=== PATIENT | male | born 1960 | race Caucasian/White ===

== ENCOUNTER 2016-09-07 09:54 | Emergency (ER) | payer OTHER ==
[~2016-09-07] VITALS: Ht 180.3 cm; Wt 86.4 kg
[2016-09-07] VITALS (8 sets, daily range): BP systolic 128–197; BP diastolic 86–117; PULSE 62–86; RESP 14–17; O2SAT 96–98
[~2016-09-07 09:54] MED LIST: AMLO5TAB2 PO; GLUC1CAP13 PO; MULT-1018 PO
--- NOTE | 2016-09-07 10:32 | DRSVH ---
PROCEDURE: X-RAY CHEST ONE VIEW, PORTABLE ([id number]) INDICATIONS: CHEST PAIN TECHNIQUE: One view of the chest was acquired. COMPARISON: None. FINDINGS: Surgical changes and devices: None. Lungs and pleura: No pleural effusions or pneumothorax. Lungs are clear. Mediastinum: Mediastinal contours appear normal. Heart size is normal. Bones and chest wall: No suspicious bony lesions. Overlying soft tissues appear unremarkable. IMPRESSION: Mildly reduced inspiratory volume, source of chest pain is not seen. Dictated by: Rudy Lara M.D. on 09/07/2016 at 10:31 Approved by: Rudy Lara M.D. on 09/07/2016 at 10:31
--- NOTE | 2016-09-07 10:34 | ED.REPORT ---
HPI-Chest Pain 40 and Over Date of Service Sep 07, 2016 ED Provider: Deandre Pal MD Started last night, causing him to wake up a couple of times. Pain located Rt back, then radiated through chest to R chest. 5/10, Feels like it's getting worse since last night, denies radiation into the neck or arm. Associated with nausea, SOB, lightheadedness. No trauma. Never had this before. Takes amlodipine for HTN, last taken 5 days ago, as he did not have the pills with him. No first degree relatives with [place]. Took naproxen this AM, did not help pain. Went to work, pain worsened and "felt it wasn't right." Did NOT take Aspirin. Denies any other medical problems or medications. No recent long distance travel, no long periods of immobilization. Denies pain or swelling in either leg. Nursing Notes Stated Complaint: CHEST PAIN Nursing Notes Reviewed: Yes Allergies: Coded Allergies: No Known Allergies (Unverified , 09/07/16) Scheduled Amlodipine (Amlodipine) 5 Mg Tablet 5 MG PO DAILY Gluc HCl/Csa/Temitope Hy/Hyalur AC (Glucosamine Chondroitin Cap) 1 Each Capsule 1 EACH PO DAILY Multivitamin (Multi Vitamin Daily) 1 Each Tablet 1 EACH PO DAILY Scheduled PRN Hydrocodone-Acetaminophen 5-300 mg (Hydrocodone-Acetaminophen 5-300 mg) 1 Each Tablet 1 TABLET PO Q4H PRN PRN For Pain General Time Seen by MD: 10:09 Chief Complaint Chest pain, Back pain Sudden in Onset?: Yes Onset Occurred: 13 - 16 hours ago Location: : Back: Chest right Past Medical History Past Medical History HTN L rotator cuff injury requiring Reconstruction Past Surgical History L rotator cuff repair 05/24/16. Mass removal (benign) from left thorax 8-9yrs ago. Family History MOther and father alive and well. Possible have HTN. MGM [place] in her early 60s. Smoking History Former Smoker (Quit 1991) Social History Lives with . Alcohol Use: 1-3 per day (wine and/or bourben and water) Drug Use: THC ("A long time ago") Occupation Plant operations and [employer] Ambulatory Status Independent Review of Systems Complete sys rev & neg: except as marked. Physical Exam General: Laying in bed, no apparent distress. HEENT: Normocephalic, atraumatic, EOMI grossly, Cardiovascular: Regular rate and rhythm, no clicks murmurs rubs, peripheral pulses 2/4 equal bilaterally Thorax: There is no tenderness over rib cage bilaterally, no ecchymosis, no reproduction or worsening with use of upper extremities. Pulmonary: Clear to auscultation bilaterally, no W/R/R. Abdominal: Soft to palpation, bowel sounds present 4, no hepatosplenomegaly. Negative rebound. Extremities: No edema appreciated. No tenderness, asymmetry. Neuro: Neurologically grossly intact, strength is equal bilaterally upper and lower extremities. MSK: Gait is normal, able to move extremities on their own volition, strength 5 out of 5 equal bilaterally to upper and lower extremities. Initial Vital Signs Vital Signs (First) Date Time Temp Pulse Resp B/P Pulse Ox O2 Delivery O2 Flow Rate FiO2 09/07/16 09:59 82 14 197/116 98 Room Air 09/07/16 13:50 36.9 Interpretation & Diagnostics Lab Results Interpretation Result Diagram: 09/07/16 1020 09/07/16 1020 Test 09/07/16 10:20 09/07/16 12:20 White Blood Count 10.7th/mm3 (3.8-10.1) Red Blood Count 5.36mil/mm3 (4.40-5.80) Hemoglobin 15.7g/dL (13.8-17.2) Hematocrit 45.2% (41.0-50.0) Mean Corpuscular Volume 84.3fL (81-100) Mean Corpuscular Hemoglobin 29.3pg (27.0-35.0) Mean Corpuscular Hemoglobin Concent 34.7% (32.0-37.0) Red Cell Distribution Width 12.6% (12.3-15.4) Platelet Count 302bil/L (150-400) Neutrophils (%) (Auto) 74.5% (40-74) Lymphocytes (%) (Auto) 16.0% (14-46) Monocytes (%) (Auto) 7.6% (4-12) Eosinophils (%) (Auto) 1.5% (0-5) Basophils (%) (Auto) 0.2% (0-3) D-Dimer < 0.50mg/L FEU (<0.50) Sodium Level 137mEq/L (134-144) Potassium Level 4.0mEq/L (3.5-5.2) Chloride Level 101mEq/L (97-108) Carbon Dioxide Level 22mmol/L (18-29) Blood Urea Nitrogen 11mg/dL (6-24) Creatinine 0.75mg/dL (0.76-1.27) Estimat Glomerular Filtration Rate 114mL/min (>59) Glucose Level 113mg/dL (60-99) Calcium Level 9.4mg/dL (8.5-10.1) Magnesium Level 2.0mg/dL (1.6-2.6) Total Bilirubin 0.4mg/dL (0.0-1.2) Aspartate Amino Transf (AST/SGOT) 22U/L (0-50) Alanine Aminotransferase (ALT/SGPT) 33U/L (0-44) Alkaline Phosphatase 67U/L (25-150) Total Protein 6.9g/dL (6.4-8.4) Albumin 4.2g/dL (3.4-5.0) Troponin T < 0.010ug/L (0.0-0.011) ECG Interpretation ECG Interpretation: Normal sinus rhythm, rate 64, left axis deviation. "Sinus rhythm, left ventricular hypertrophy, old inferior infarct" QTC 415 ECG Interpretation: No significant change from previous, no signs of infarct or ischemia. Rate 57, GA 148 QTC 402 X-Ray Chest Interpretation Chest Xray Interpretation: "Mildly reduced inspiratory volume, source of chest pain is not seen." Images reviewed personally, no rib fractures, no pneumo or hemothorax. View: Portable Interpretation / Wet Read by: Interpret - Radiologist Re-Eval/Medical Decision Med Decision/Clinical Course Patient workup was negative for signs of myocardial infarction, pneumothorax, rib fracture, and negative d-dimer and low risk for DVT/pulmonary embolism. Patient's pain had mild response to sublingual nitroglycerin, nitroglycerin paste was applied, he was given 10 mg dose of amlodipine by mouth, as well as chewable aspirin. His blood pressure responded only mildly and transiently to nitroglycerin. Following administration of amlodipine systolic blood pressure remained elevated but better controlled. Negative workup was discussed with the patient, source of pain is not identified on imaging or chemistries, red flag symptoms were discussed with the patient in need to return to ER, patient stated understanding and agreement. Patient did mention he was favoring his right upper extremity since having surgery on his left shoulder, additionally he conveys that since coming in the hospital doing self massage has helped relieve some of the pain. Photos were negative 2, and EKGs were reassuring 2 Counseled Regarding: Diagnosis, Lab results, Need for follow-up, When/why to return to ED Discharge & Departure Primary Impression: Hypertension, uncontrolled Additional Impression: Chest pain, non-cardiac Disposition: Home Discharge Condition All VS Reviewed: Yes Patient Instructions: Chest Pain (ED), Chronic Hypertension (ED) Additional Instructions: Please follow-up with your primary care physician regarding your emergency room visit. Please continue taking your amlodipine at home, do not skip doses. If you have any lightheadedness, dizziness, worsening chest pain, feeling your heart beating fast or hard for no reason, abrupt shortness of breath, please do not hesitate to return to the emergency department or call 911 if necessary. We have given you small amount of pain medication, this will only cover up the pain will not treat the cause. Please only take 1 pill at a time with at least 6 hours in between. Please do not operate any vehicles, drive or be responsible for anyone else after taking this medication. Do not take with alcohol Referrals: Mina Lopez MD (PCP) Attending Statement I personally saw and examined this patient with Dr Plaza on 09/07. Agree with above. copies to: Mina Lopez MD, Noah M DO Sep 07, 2016 10:33 Deandre Pal MD Sep 07, 2016 19:16
[2016-09-07 10:38] LABS: BASOPHILS % (AUTO) 0.2 % (0-3); EOSINOPHILS % (AUTO) 1.5 % (0-5); MONOCYTES % (AUTO) 7.6 % (4-12); Mean Corpuscular Hemoglobin 29.3 pg (27.0-35.0); Mean Corpuscular Volume 84.3 fL (81-100); NEUTROPHILS % (AUTO) 74.5 % (40-74); Platelet Count 302 bil/L (150-400)
[2016-09-07 11:23] LABS: TROPONIN T < 0.010 ug/L (0.0-0.011)
[2016-09-07] MEDS: Nitroglycerin 2% 1 Gm Ointment TOPICAL SCH ×5 (11:36→12:41)
[2016-09-07] MEDS ORDERED: HYDR-3090 PO (12:29)
== END 2016-09-07 13:57 | disposition home or self-care (01) ==
LOC: SED 09:54
DX: I10 Essential (primary) hypertension (principal); R07.89 Other chest pain; Z87.891 Personal history of nicotine dependence